=== PATIENT | male | born 1965 | race Caucasian/White ===

== ENCOUNTER 2021-06-09 14:58 | Emergency (ER) | payer OTHER ==
[2021-06-09] MEDS ORDERED: Bacitracin 1 PK ONE (17:37)
== END 2021-06-09 17:50 | disposition home or self-care (01) ==
LOC: BURERS 14:58
DX: S63.92XA Sprain of unspecified part of left wrist and hand, initial encounter (principal); S60.512A Abrasion of left hand, initial encounter; W27.8XXA Contact with other nonpowered hand tool, initial encounter